=== PATIENT | male | born 1955 ===

== ENCOUNTER 2023-12-10 14:47 | Emergency (ER) | payer MEDICARE, OTHER ==
[2023-12-10] MEDS: Sodium Chloride 0.9% 10 ML Syringe FLUSH PRN ×2 (15:02→15:45)
[2023-12-10] MEDS ORDERED: ceFAZolin 2 GM in Sodium Chloride 0.9% 50 ML IV ONE (15:08)
[2023-12-10] MEDS ORDERED: Naloxone 0.4 MG/ML SDV IVPUSH PRN (15:12)
[2023-12-10] MEDS ORDERED: HYDROmorphone 1 MG/ML Syringe IVPUSH ONE ×2 (15:12→17:05)
[2023-12-10 15:14] LABS: BASOPHILS ABSOLUTE AUTO 0.1 K/mm3 (0.0-0.2); BASOPHILS PERCENT AUTO 0.9 % (0.0-1.0); EOSINOPHILS ABSOLUTE AUTO 0.3 K/mm3 (0.0-0.4); EOSINOPHILS PERCENT AUTO 4.5 % (0.0-6.0); HEMATOCRIT 44.4 % (42.0-52.0); HEMOGLOBIN 14.8 gm/dl (14.0-18.0); IMMATURE GRAN ABSOLUTE AUTO 0.03 K/mm3 (0.00-0.05); IMMATURE GRAN PERCENT AUTO 0.5 % (0.0-0.4); LYMPHOCYTES ABSOLUTE AUTO 1.9 K/mm3 (1.0-4.8); LYMPHOCYTES PERCENT AUTO 29.8 % (24.0-44.0); MEAN CORPUSCULAR HEMOGLOBIN 29.8 pg (28.0-32.0); MEAN CORPUSCULAR HGB CONC 33.3 g/dl (32.0-36.0); MEAN CORPUSCULAR VOLUME 89.5 fl (83.0-99.0); MEAN PLATELET VOLUME 9.1 fl (9.4-12.4); MONOCYTES ABSOLUTE AUTO 0.5 K/mm3 (0.0-0.8); MONOCYTES PERCENT AUTO 7.3 % (0.0-8.0); NEUTROPHILS ABSOLUTE AUTO 3.7 K/mm3 (1.8-7.7); PLATELET COUNT,PLT 178 K/mm3 (150-400); RED BLOOD CELL COUNT 4.96 M/mm3 (4.52-5.90); WHITE BLOOD CELL COUNT,WBC 6.48 K/mm3 (3.9-11.3)
[2023-12-10] MEDS ORDERED: Ondansetron 4 MG/2 ML SDV IVPUSH ONE (15:14)
[2023-12-10] MEDS ORDERED: Iopamidol 755 Mg/ML 100 ML Bottle IVPUSH ONE (15:24)
[2023-12-10] MEDS ORDERED: Sodium Chloride 0.9% 10 ML Syringe FLUSH ONE (15:24)
[2023-12-10] MEDS ORDERED: Sodium Chloride 0.9% 40 ML IV SCH (15:30)
[2023-12-10 15:34] LABS: PROTHROMBIN TIME 10.7 SECONDS (9.7-12.0)
[2023-12-10 15:35] LABS: PTT,PARTIAL THROMBOPLSTIN TIME 25.9 SECONDS (21.7-31.4)
[2023-12-10 15:40] LABS: ALBUMIN 4.3 g/dl (3.4-5.0); ANION GAP 18.2 (5-15); BILIRUBIN TOTAL 0.6 mg/dL (0.2-1.0); BUN/CREATININE RATIO 23.8 (14-18); CALCIUM 9.4 mg/dL (8.5-10.1); CREATININE 1.3 mg/dL (0.7-1.3); EST CRCL DRUG DOSING (CG) 56.93 mL/min; MAGNESIUM 1.9 mg/dL (1.8-2.4); POTASSIUM,K 4.2 mEq/L (3.5-5.1); PROTEIN TOTAL,TP 8.5 g/dl (6.4-8.2)
[2023-12-10] MEDS ORDERED: Propofol 200 MG/20 ML SDV IVPUSH ONE (15:44)
[2023-12-10] MEDS ORDERED: fentaNYL 100 MCG/2 ML SDV IVPUSH ONE ×3 (15:45→18:34)
[2023-12-10] MEDS ORDERED: Diphtheria,Pertussis(Acell),Tetanus Vaccine 0.5 ML Syringe IM ONE (16:01)
== END 2023-12-10 18:42 ==
LOC: JD.ED 14:47
DX: S82.201C Unspecified fracture of shaft of right tibia, initial encounter for open fracture type IIIA, IIIB, or IIIC (principal); S82.401 Unspecified fracture of shaft of right fibula; S82.201B Unspecified fracture of shaft of right tibia, initial encounter for open fracture type I or II; S82.401B Unspecified fracture of shaft of right fibula, initial encounter for open fracture type I or II; W11.XXXA Fall on and from ladder, initial encounter; Z79.82 Long term (current) use of aspirin; Z79.899 Other long term (current) drug therapy; Z88.0 Allergy status to penicillin
CPT/HCPCS: 27752; 36415; 73590; 73600; 73706; 80053; 83735; 85025; 85610; 85730; 90471; 90715; 96365; 96375; 96376; 99285; J0690; J1170; J2405; J2704; J3010; J3490; Q9967